=== PATIENT | male | born 2000 | race Two or more races ===

== ENCOUNTER 2021-05-20 01:44 | Emergency (ER) | payer OTHER ==
[~2021-05-20] VITALS: Ht 180.3 cm; Wt 89.7 kg
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
[2021-05-20 03:30] VITALS: BP 118/77
[2021-05-20] MEDS ORDERED: ACETAMINOPHEN 325 MG TABLET. PO ONE (03:30)
[2021-05-20] MEDS ORDERED: DIPH,PERTUSS(ACELL),TET VAC/PF 0.5 ML SYRINGE. VAX IM ONE (03:30)
== END 2021-05-20 03:40 | disposition home or self-care (01) ==
LOC: ER 01:44
DX: S60.417A Abrasion of left little finger, initial encounter (principal); V43.52XA Car driver injured in collision with other type car in traffic accident, initial encounter; Y92.488 Other paved roadways as the place of occurrence of the external cause; Y93.89 Activity, other specified; Y99.8 Other external cause status
CPT/HCPCS: 90471; 90715; 99283